=== PATIENT | female | born 1975 | race Caucasian/White ===

== ENCOUNTER 2016-08-14 08:57 | Emergency (ER) | payer MEDICAID ==
[2016-08-14 09:15] VITALS: TEMP 97.6
[2016-08-14] MEDS ORDERED: Sodium Chloride 0.9% 1,000 ML IV ONE (09:27)
[2016-08-14 09:57] LABS: BASO # 0.1 K/uL (0.0-0.2); BASO % 0.8 % (0.0-2.0); EOS # 0.2 K/uL (0.0-0.7); EOS % 2.1 % (0.0-4.0); LYMPH # 3.3 K/uL (1.0-4.3); MEAN CELL VOLUME 82.1 fL (81.0-99.0); MEAN CORPUSCULAR HEMOGLOBIN 26.4 pg (27.0-31.0); MEAN CORPUSCULAR HGB CONC 32.2 g/dL (33.0-37.0); MEAN PLATELET VOLUME 7.9 fL (7.2-11.7); MONO # 0.7 K/uL (0.0-0.8); MONO % 6.7 % (0.0-10.0); NRBC % 0.2 % (0.0-2.0); RED CELL DISTRIBUTION WIDTH 14.7 % (11.5-14.5); WHITE BLOOD COUNT 9.8 K/uL (4.8-10.8)
[2016-08-14 10:08] LABS: CHLORIDE 104 mmol/L (98-107)
[2016-08-14 10:09] LABS: SODIUM 138 mmol/L (132-148)
[2016-08-14 10:10] LABS: POTASSIUM 3.6 mmol/L (3.6-5.2)
[2016-08-14 10:12] LABS: ALKALINE PHOSPHATASE 95 U/L (38-126); ALT/SGPT 21 U/L (9-52); AST/SGOT 20 U/L (14-36); BILIRUBIN,TOTAL 0.5 mg/dL (0.2-1.3); BLOOD UREA NITROGEN 8 mg/dL (7-17); CALCIUM 8.7 mg/dl (8.6-10.4); CARBON DIOXIDE 24 mmol/L (22-30); GFR AFRICAN-AMERICAN > 60; GLUCOSE,RANDOM 90 mg/dL (65-105); TOTAL PROTEIN 7.8 g/dL (6.3-8.3)
--- NOTE | 2016-08-14 10:19 | C.PDOC ---
History Of Present Illness 41 y/o female c/o low back pain R>L for 2 days. Patient also reports pelvic pressure, nausea/vomiting and states she is urinating very little at a time since yesterday. Patient reports history of kidney stones. She denies diarrhea , fever, vaginal discharge/bleeding - currently has her menses. Time Seen by Provider: 08/14/16 09:01 Chief Complaint (Nursing): Back Pain History Per: Patient History/Exam Limitations: no limitations Onset/Duration Of Symptoms: Days Current Symptoms Are (Timing): Still Present Quality Of Discomfort: "Pain" Severity: Mild Associated Symptoms: denies: Incontinence, New Weakness, New Numbness Recent travel outside of the [place]: No Past Medical History Reviewed: Historical Data, Nursing Documentation, Vital Signs Vital Signs: Last Vital Signs Temp 97.6 F 08/14/16 09:07 Pulse 91 H 08/14/16 13:24 Resp 20 08/14/16 13:24 BP 137/76 08/14/16 13:24 Pulse Ox 98 08/14/16 18:48 - Medical History PMH: No Chronic Diseases Family History: States: No Known Family Hx - Social History Hx Alcohol Use: No Hx Substance Use: No - Immunization History Hx Tetanus Toxoid Vaccination: No Hx Influenza Vaccination: No Hx Pneumococcal Vaccination: No Review Of Systems Except As Marked, All Systems Reviewed And Found Negative. Constitutional: Negative for: Fever, Chills Cardiovascular: Negative for: Chest Pain, Palpitations Respiratory: Negative for: Cough, Shortness of Breath, Wheezing Gastrointestinal: Positive for: Nausea, Vomiting. Negative for: Abdominal Pain , Diarrhea Genitourinary: Positive for: Other (pelvic pressure). Negative for: Dysuria, Hematuria Musculoskeletal: Positive for: Back Pain Skin: Negative for: Rash Physical Exam - Physical Exam Appears: Non-toxic, Other (mildly uncomfortable) Skin: Normal Color, Warm, Dry Head: Normacephalic Oral Mucosa: Moist Cardiovascular: Rhythm Regular Respiratory: Normal Breath Sounds, No Rales, No Rhonchi, No Wheezing Gastrointestinal/Abdominal: Bowel Sounds, Soft, Tenderness (suprapubic TTP, (-) McBurney's), No Guarding, No Rebound Back: Normal Inspection, No CVA Tenderness Extremity: Normal ROM Neurological/Psych: Oriented x3 ED Course And Treatment - Laboratory Results Result Diagrams: 08/14/16 09:39 08/14/16 09:39 O2 Sat by Pulse Oximetry: 98 (RA) Pulse Ox Interpretation: Normal - CT Scan/US CT Abdomen/Pelvis Other Rad Studies (CT/US): Read By Radiologist, Radiology Report Reviewed CT/US Interpretation: FINDINGS: LOWER THORAX: Minor passive atelectasis both posterior lower lung pierre. Lung bases are otherwise clear. No infiltrate effusion or basilar pneumothorax. LIVER: Liver is mildly enlarged measuring nearly 20 cm in CC dimension. No obvious hepatic mass collection or calcification. GALLBLADDER AND BILE DUCTS: Gallbladder is physiologically distended. No evidence of radiopaque intraluminal gallbladder calculi. PANCREAS: Visualized portions of the pancreas are slightly atrophic. No pancreatic mass collection or calcification. SPLEEN: Spleen exhibits normal size and attenuation pattern without mass collection or calcification. ADRENALS : There are no adrenal lesions. KIDNEYS AND URETERS: Kidneys exhibit relatively symmetric size. There is mild right-sided hydronephrosis with dilatation of the ureter secondary to a distal and 2.7 mm right ureteral calculus just above the level of the UVJ. No other on radiopaque calculi are identified. No evidence of left-sided hydronephrosis. BLADDER: The urinary bladder is incompletely distended which may account for slight thick-walled appearance. Possibility of cystitis not excluded. REPRODUCTIVE: Re- demonstrated is a large right pelvic. Which abuts the right lateral margin of the uterine fundus most consistent with a adnexal cyst. This measures approximately 8.1 x 6.6 x 7.6 cm in greatest dimension. . Note that this cyst was measured at approximately 8.2 x 8.3 x 7.5 cm on prior ultrasound. Consider followup MRI of the female pelvis clinically indicated. APPENDIX: Appendix is unremarkable. BOWEL: Evaluation of the bowel is limited due to the lack of oral contrast material. Stomach is incompletely distended which presumably accounts for slight thick-walled appearance. Gastritis cannot be completely excluded. Visualized loops of small bowel exhibit normal contour. No evidence of acute mechanical small bowel obstruction. Stool and air seen throughout the colon. No definitive abnormal mural wall thickening. PERITONEUM: No gross free intraperitoneal air. No free or loculated fluid collection not withstanding the aforementioned right adnexal cyst. LYMPH NODES: Unremarkable. No enlarged lymph nodes. VASCULATURE: Unremarkable. No aortic aneurysm. BONES: Minor multilevel degenerative spondylosis of the lower thoracic and lumbar spine. No acute compression fracture nor retropulsed fragments. Vertebral bodies exhibit relatively normal stature. OTHER FINDINGS : None. IMPRESSION: Small 2.7 mm distal right ureteral calculus with mild right-sided hydronephrosis. Hepatomegaly. Large right adnexal cyst as detailed above. . Consider followup MRI of the female pelvis if clinically indicated Progress Note: Blood work, UA, CT abdomen/pelvis ordered and reviewed. Patient given IV NS bolus, IV toradol. Reevaluation Time: 13:25 Reassessment Condition: Improved (On reassessment, patient is resting comfortably, and pain has resolved. CT scan shows right sided 2.7mm stone at distal ureter, as well as ovarian cyst (patient has h/o ovarian cyst on that side). Patient is comfortable being discharged home, was given Rxs for Flomax and Vicodin. She was instructed to follow up with urology within 1 week, and understands she should return to ER if symptoms worsen.) Disposition Counseled Patient/Family Regarding: Studies Performed, Diagnosis, Need For Followup, Rx Given - Disposition Referrals: Vivek Dennis MD [Staff Provider] - [facility] [Outside] [facility] [Outside] Disposition: HOME/ ROUTINE Disposition Time: 13:25 Condition: STABLE Additional Instructions: SEGUIMIENTO CON UROLOGA DENTRO DE 1 SEMANA USE NEISHA MEDICAMENTOS CUANDO SEA NECESARIO DEVUELVA A LA LINDA DE EMERGENCIA SI LOS SNTOMAS EMPEORARAN Prescriptions: Hydrocodone/Acetaminophen [Hydrocodon-Acetaminophen 5-325] 1 each PO Q6 PRN #12 tablet PRN Reason: Pain, Moderate (4-7) Tamsulosin [Flomax] 0.4 mg PO DAILY #5 cap Instructions: Ovarian Cyst (ED), Kidney Stones (ED), Renal Colic (ED) Forms: Work Excuse Print Language: UKRAINIAN - POA Present On Arrival: None - Clinical Impression Clinical Impression: Kidney stone on right side, Ovarian cyst - Scribe Statement The provider has reviewed the documentation as recorded by the Lemuel Okeefe Provider Attestation: All medical record entries made by the [place] were at my direction and personally dictated by me. I have reviewed the chart and agree that the record accurately reflects my personal performance of the history, physical exam, medical decision making, and the department course for this patient. I have also personally directed, reviewed, and agree with the discharge instructions and disposition.
[2016-08-14 10:21] LABS: RBC URINE 1058 /hpf (0-3); URINE BILIRUBIN NEGATIVE (NEGATIVE); URINE BLOOD 3+ (NEGATIVE); URINE COLOR Yellow (YELLOW); URINE GLUCOSE (UA) NORMAL (Normal); URINE KETONE NEGATIVE (NEGATIVE); URINE LEUKOCYTE ESTERASE 1+ Leu/uL (Negative); URINE PROTEIN 2+ mg/dL (NEGATIVE); URINE UROBILINOGEN NORMAL mg/dL (0.2-1.0); WBC URINE 13 /hpf (0-5)
--- NOTE | 2016-08-14 13:11 | CT ---
PROCEDURE: CT scan of the abdomen and pelvis dated 08/14/2016. HISTORY: Flank pain. Rule out stone. COMPARISON: Comparison made with prior study dated 11/08/2014. TECHNIQUE: Contiguous helical/transaxial images of the abdomen and pelvis. Oral contrast was administered. No IV contrast given. Coronal and Sagittal reformats generated. Radiation dose: Total exam DLP = 1207.12 mGy-cm. This CT exam was performed using one or more of the following dose reduction techniques: Automated exposure control, adjustment of the mA and/or kV according to patient size, and/or use of iterative reconstruction technique. . FINDINGS: LOWER THORAX: Minor passive atelectasis both posterior lower lung pierre. Lung bases are otherwise clear. No infiltrate effusion or basilar pneumothorax. LIVER: Liver is mildly enlarged measuring nearly 20 cm in CC dimension. No obvious hepatic mass collection or calcification. GALLBLADDER AND BILE DUCTS: Gallbladder is physiologically distended. No evidence of radiopaque intraluminal gallbladder calculi. PANCREAS: Visualized portions of the pancreas are slightly atrophic. No pancreatic mass collection or calcification. SPLEEN: Spleen exhibits normal size and attenuation pattern without mass collection or calcification. ADRENALS: There are no adrenal lesions. KIDNEYS AND URETERS: Kidneys exhibit relatively symmetric size. There is mild right-sided hydronephrosis with dilatation of the ureter secondary to a distal and 2.7 mm right ureteral calculus just above the level of the UVJ. No other on radiopaque calculi are identified. No evidence of left-sided hydronephrosis. BLADDER: The urinary bladder is incompletely distended which may account for slight thick-walled appearance. Possibility of cystitis not excluded REPRODUCTIVE: Re- demonstrated is a large right pelvic. Which abuts the right lateral margin of the uterine fundus most consistent with a adnexal cyst. This measures approximately 8.1 x 6.6 x 7.6 cm in greatest dimension. . Note that this cyst was measured at approximately 8.2 x 8.3 x 7.5 cm on prior ultrasound. Consider followup MRI of the female pelvis clinically indicated. APPENDIX: Appendix is unremarkable. BOWEL: Evaluation of the bowel is limited due to the lack of oral contrast material. Stomach is incompletely distended which presumably accounts for slight thick-walled appearance. Gastritis cannot be completely excluded. Visualized loops of small bowel exhibit normal contour. No evidence of acute mechanical small bowel obstruction. Stool and air seen throughout the colon. No definitive abnormal mural wall thickening. PERITONEUM: No gross free intraperitoneal air. No free or loculated fluid collection not withstanding the aforementioned right adnexal cyst. LYMPH NODES: Unremarkable. No enlarged lymph nodes. VASCULATURE: Unremarkable. No aortic aneurysm. BONES: Minor multilevel degenerative spondylosis of the lower thoracic and lumbar spine. No acute compression fracture nor retropulsed fragments. Vertebral bodies exhibit relatively normal stature. OTHER FINDINGS: None. IMPRESSION: Small 2.7 mm distal right ureteral calculus with mild right-sided hydronephrosis. Hepatomegaly. Large right adnexal cyst as detailed above. . Consider followup MRI of the female pelvis if clinically indicated
[2016-08-14 13:25] VITALS: BP 137/76; PULSE 91; RESP 20
[2016-08-14 13:28] VITALS: O2SAT 98
== END 2016-08-14 13:46 | disposition home or self-care (01) ==
LOC: C.ER 08:57
DX: N13.2 Hydronephrosis with renal and ureteral calculous obstruction (principal); N83.201 Unspecified ovarian cyst, right side; Z87.442 Personal history of urinary calculi
CPT/HCPCS: 74176; 80053; 81001; 83690; 84703; 85025; 96374; 99285; J1885; J7040